=== PATIENT | male | born 1975 | race Caucasian/White ===

== ENCOUNTER 2016-12-10 18:35 | Emergency (ER) | payer MEDICAID ==
[~2016-12-10] VITALS: Ht 165.1 cm; Wt 91.0 kg
[~2016-12-10 18:35] MED LIST: CEPH-443 PO; IBUP-1542 PO; IBUP800T25 PO
[2016-12-10 18:58] VITALS: Ht 165.1 cm; Wt 91.0 kg
[2016-12-10] MEDS ORDERED: KETOROLAC 30 MG INJ IM STA (19:34)
[2016-12-10] MEDS ORDERED: TRAM50TA2 PO (19:39)
[2016-12-10] MEDS ORDERED: NAPR-260 PO (19:39)
[2016-12-10] MEDS ORDERED: CYCL-319 PO (19:39)
--- NOTE | 2016-12-10 19:50 | ERD ---
ER Documentation Chief Complaint Chief Complaint lower back pain since this am, was trying to move a cabinet HPI This is a 41-year-old male who presents the emergency department today complaining of low back pain that started this morning after trying to move a heavy cabinet. Patient states he has pain with twisting. States he feels like it is grabbing and pulling. Denies any fevers or chills, dysuria, hematuria , previous trauma. States he took a diclofenac earlier this morning. Denies any loss of bowel or bladder control. ROS All systems reviewed and are negative except as per history of present illness. Medications Home Meds Active Scripts Tramadol HCl (Tramadol HCl) 50 Mg Tablet, 50 MG PO Q4 Y for PAIN, #20 TAB Prov:GOGO WEN PA-C 12/10/16 Cyclobenzaprine Hcl* (Cyclobenzaprine Hcl*) 10 Mg Tablet, 10 MG PO QHS, #7 TAB Prov:GOGO WEN PA-C 12/10/16 Naproxen* (Naprosyn*) 500 Mg Tablet, 500 MG PO BID Y for PAIN AND/OR INFLAMMATION, #30 TAB Prov:GOGO WEN PA-C 12/10/16 Ibuprofen* (Motrin*) 600 Mg Tab, 600 MG PO Q6, #20 TAB Prov:LB PEGN PA-C 08/24/14 Cephalexin* (Keflex*) 500 Mg Capsule, 500 MG PO QID for 7 Days, CAP Prov:LB PENG PA-C 08/24/14 Ibuprofen* (Motrin*) 800 Mg Tab, 800 MG PO Q6, #30 TAB Prov:BERNIE SERRANO PA-C 08/23/14 Allergies Allergies: Coded Allergies: No Known Allergy (Unverified , 12/10/16) PMhx/Soc History of Surgery: No Anesthesia Reaction: No Hx Neurological Disorder: No Hx Cardiac Disorders: No Hx Psychiatric Problems: No Hx Miscellaneous Medical Probl: No Hx Alcohol Use: No Hx Substance Use: No Hx Tobacco Use: No Smoking Status: Never smoker Physical Exam Vitals Vital Signs Date Time Temp Pulse Resp B/P Pulse Ox O2 Delivery O2 Flow Rate FiO2 12/10/16 18:58 98.1 61 20 160/85 99 Physical Exam Const: NAD Head: Atraumatic Eyes: Normal Conjunctiva ENT: Normal External Ears, Nose and Mouth. Neck: Full range of motion..~ No meningismus. Resp: Clear to auscultation bilaterally Cardio: Regular rate and rhythm, no murmurs Abd: Soft, non tender, non distended. Normal bowel sounds Skin: No petechiae or rashes Back: Lumbar spine with no midline tenderness. Bilateral paraspinal tenderness. Decreased range of motion secondary to pain. Patient able to ambulate. Negative straight leg raise. Pulses 2+. Distal neurovascularly intact. Ext: No cyanosis, or edema Neur: Awake and alert Psych: Normal Mood and Affect Results 24 hrs Current Medications Medications (Trade) Dose Ordered Sig/Anika Route PRN Reason Start Time Stop Time Status Last Admin Dose Admin Ketorolac Tromethamine (Toradol) 30 mg ONCE STAT IM 12/10/16 19:34 12/10/16 19:35 DC Procedures/MDM This is a 1-year-old male who presents to the emergency department today complaining of back pain removing a heavy cabinet earlier today. Patient was inquiring about x-rays however he has no midline tenderness and he does have bilateral paraspinal tenderness and I do not feel that he needs imaging at this time. I have explained this to the patient. Symptoms at that time is consistent with sprain versus strain. Low suspicion for acute fracture or dislocation. Patient is afebrile and otherwise well-appearing. They have no loss of bowel or bladder control. Low suspicion for cauda equina or abscess. Patient was given Toradol here in the emergency department and pain improved. Patient will be given a prescription for Tramadol ,Naprosyn and Flexeril for home. At this time the patient is stable for discharge and outpatient management. Patient should follow up with their PCP in the next 1-2 days. They may return to the emergency department sooner for any persistent or worsening of symptoms. Patient understood and agreed with the plan. Departure Diagnosis: Primary Impression: Injury of back Encounter type: initial encounter Qualified Code: S39.92XA - Injury of back , initial encounter Condition: Fair Patient Instructions: Back Pain (Acute Or Chronic), Back Sprain/Strain [facility] Usted se sher hecho un examen mdico de control que le indica que no est en lillian condicin que requiera tratamiento urgente en el Departamento de Emergencia. Un estudio ms profundo y el tratamiento de avilez condicin pueden esperar sin ningn riesgo hasta que usted sea atendida/o en el consultorio de avilez mdico o lillian cl sal. Es responsabilidad suya arreglar lillian nando para el seguimiento del danyell. MANEJO DE CONDICIONES NO URGENTES EN EL FUTURO 1) Si usted tiene un mdico de atencin primaria: Usted debera llamar a avilez mdico de atencin primaria antes de venir al departamento de emergencia. Despus de las horas de consultorio, avilez doctor o avilez asociado/a est disponible por telfono. El mdico o enfermero de diane en el servicio telefnico puede asesorarle por funmi medio para atender el problema, o danyell contrario se puede programar lillian nando. 2) Si usted no tiene un mdico de atencin primaria: Llame al mdico o clnica de referencia que aparece abajo samantha las horas de consultorio para hacer lillian nando para que le vean. CLINICAS: [facility] [phone] [facility] [phone] 75[address] [facility]. [facility] [phone] 2[address] [facility]. [place] [phone] [facility] [place] [address] [phone] [facility]. [phone] [address] Additional Instructions: Llame al doctor MAANA y kaylah lillian NANDO PARA DENTRO DE 1-2 ZAZUETA.Dgale a la secretaria que nosotros le instruimos hacer esta nando.Avise o llame si avilez condicin se empeora antes de la nando. Regresa aqui si peor o no mejor. Take Tramadol for severe pain otherwise take Naprosyn or Tylenol or Motrin. Take Flexeril for muscle spasms and take only at night and do not drive while taking this medication. Apply Ice and heat intermittently for pain. GOGO WEN PA-C Dec 10, 2016 19:50
--- NOTE | 2016-12-10 19:50 | ERD ---
ER Documentation Chief Complaint Chief Complaint lower back pain since this am, was trying to move a cabinet HPI This is a 41-year-old male who presents the emergency department today complaining of low back pain that started this morning after trying to move a heavy cabinet. Patient states he has pain with twisting. States he feels like it is grabbing and pulling. Denies any fevers or chills, dysuria, hematuria , previous trauma. States he took a diclofenac earlier this morning. Denies any loss of bowel or bladder control. ROS All systems reviewed and are negative except as per history of present illness. Medications Home Meds Active Scripts Tramadol HCl (Tramadol HCl) 50 Mg Tablet, 50 MG PO Q4 Y for PAIN, #20 TAB Prov:GOGO WEN PA-C 12/10/16 Cyclobenzaprine Hcl* (Cyclobenzaprine Hcl*) 10 Mg Tablet, 10 MG PO QHS, #7 TAB Prov:GOGO WEN PA-C 12/10/16 Naproxen* (Naprosyn*) 500 Mg Tablet, 500 MG PO BID Y for PAIN AND/OR INFLAMMATION, #30 TAB Prov:GOGO WEN PA-C 12/10/16 Ibuprofen* (Motrin*) 600 Mg Tab, 600 MG PO Q6, #20 TAB Prov:LB PENG PA-C 08/24/14 Cephalexin* (Keflex*) 500 Mg Capsule, 500 MG PO QID for 7 Days, CAP Prov:LB PENG PA-C 08/24/14 Ibuprofen* (Motrin*) 800 Mg Tab, 800 MG PO Q6, #30 TAB Prov:BERNIE SERRANO PA-C 08/23/14 Allergies Allergies: Coded Allergies: No Known Allergy (Unverified , 12/10/16) PMhx/Soc History of Surgery: No Anesthesia Reaction: No Hx Neurological Disorder: No Hx Cardiac Disorders: No Hx Psychiatric Problems: No Hx Miscellaneous Medical Probl: No Hx Alcohol Use: No Hx Substance Use: No Hx Tobacco Use: No Smoking Status: Never smoker Physical Exam Vitals Vital Signs Date Time Temp Pulse Resp B/P Pulse Ox O2 Delivery O2 Flow Rate FiO2 12/10/16 18:58 98.1 61 20 160/85 99 Physical Exam Const: NAD Head: Atraumatic Eyes: Normal Conjunctiva ENT: Normal External Ears, Nose and Mouth. Neck: Full range of motion..~ No meningismus. Resp: Clear to auscultation bilaterally Cardio: Regular rate and rhythm, no murmurs Abd: Soft, non tender, non distended. Normal bowel sounds Skin: No petechiae or rashes Back: Lumbar spine with no midline tenderness. Bilateral paraspinal tenderness. Decreased range of motion secondary to pain. Patient able to ambulate. Negative straight leg raise. Pulses 2+. Distal neurovascularly intact. Ext: No cyanosis, or edema Neur: Awake and alert Psych: Normal Mood and Affect Results 24 hrs Current Medications Medications (Trade) Dose Ordered Sig/Anika Route PRN Reason Start Time Stop Time Status Last Admin Dose Admin Ketorolac Tromethamine (Toradol) 30 mg ONCE STAT IM 12/10/16 19:34 12/10/16 19:35 DC Procedures/MDM This is a 1-year-old male who presents to the emergency department today complaining of back pain removing a heavy cabinet earlier today. Patient was inquiring about x-rays however he has no midline tenderness and he does have bilateral paraspinal tenderness and I do not feel that he needs imaging at this time. I have explained this to the patient. Symptoms at that time is consistent with sprain versus strain. Low suspicion for acute fracture or dislocation. Patient is afebrile and otherwise well-appearing. They have no loss of bowel or bladder control. Low suspicion for cauda equina or abscess. Patient was given Toradol here in the emergency department and pain improved. Patient will be given a prescription for Tramadol ,Naprosyn and Flexeril for home. At this time the patient is stable for discharge and outpatient management. Patient should follow up with their PCP in the next 1-2 days. They may return to the emergency department sooner for any persistent or worsening of symptoms. Patient understood and agreed with the plan. Departure Diagnosis: Primary Impression: Injury of back Encounter type: initial encounter Qualified Code: S39.92XA - Injury of back , initial encounter Condition: Fair Patient Instructions: Back Pain (Acute Or Chronic), Back Sprain/Strain Referrals: [facility] Usted se sher hecho un examen mdico de control que le indica que no est en lillian condicin que requiera tratamiento urgente en el Departamento de Emergencia. Un estudio ms profundo y el tratamiento de avilez condicin pueden esperar sin ningn riesgo hasta que usted sea atendida/o en el consultorio de avilez mdico o lillian cl sal. Es responsabilidad suya arreglar lillian nando para el seguimiento del danyell. MANEJO DE CONDICIONES NO URGENTES EN EL FUTURO 1) Si usted tiene un mdico de atencin primaria: Usted debera llamar a avilez mdico de atencin primaria antes de venir al departamento de emergencia. Despus de las horas de consultorio, avilez doctor o avilez asociado/a est disponible por telfono. El mdico o enfermero de diane en el servicio telefnico puede asesorarle por funmi medio para atender el problema, o danyell contrario se puede programar lillian nando. 2) Si usted no tiene un mdico de atencin primaria: Llame al mdico o clnica de referencia que aparece abajo samantha las horas de consultorio para hacer lillian nando para que le vean. CLINICAS: [facility] [phone] [address] [facility] [phone] 75[address] [facility]. [facility] [phone] [address] [facility]. [place] [address] [phone] [facility]. [place] [phone] [facility]. [phone] [address] Additional Instructions: Llame al doctor MAANA y kaylah lillian NANDO PARA DENTRO DE 1-2 ZAZUETA.Dgale a la secretaria que nosotros le instruimos hacer esta nando.Avise o llame si avilez condicin se empeora antes de la nando. Regresa aqui si peor o no mejor. Take Tramadol for severe pain otherwise take Naprosyn or Tylenol or Motrin. Take Flexeril for muscle spasms and take only at night and do not drive while taking this medication. Apply Ice and heat intermittently for pain. GOGO WEN PA-C Dec 10, 2016 19:50
--- NOTE | 2016-12-10 19:50 | ERD ---
ER Documentation Chief Complaint Chief Complaint lower back pain since this am, was trying to move a cabinet HPI This is a 41-year-old male who presents the emergency department today complaining of low back pain that started this morning after trying to move a heavy cabinet. Patient states he has pain with twisting. States he feels like it is grabbing and pulling. Denies any fevers or chills, dysuria, hematuria , previous trauma. States he took a diclofenac earlier this morning. Denies any loss of bowel or bladder control. ROS All systems reviewed and are negative except as per history of present illness. Medications Home Meds Active Scripts Tramadol HCl (Tramadol HCl) 50 Mg Tablet, 50 MG PO Q4 Y for PAIN, #20 TAB Prov:GOGO WEN PA-C 12/10/16 Cyclobenzaprine Hcl* (Cyclobenzaprine Hcl*) 10 Mg Tablet, 10 MG PO QHS, #7 TAB Prov:GOGO WEN PA-C 12/10/16 Naproxen* (Naprosyn*) 500 Mg Tablet, 500 MG PO BID Y for PAIN AND/OR INFLAMMATION, #30 TAB Prov:GOGO WEN PA-C 12/10/16 Ibuprofen* (Motrin*) 600 Mg Tab, 600 MG PO Q6, #20 TAB Prov:LB PENG PA-C 08/24/14 Cephalexin* (Keflex*) 500 Mg Capsule, 500 MG PO QID for 7 Days, CAP Prov:LB PENG PA-C 08/24/14 Ibuprofen* (Motrin*) 800 Mg Tab, 800 MG PO Q6, #30 TAB Prov:BERNIE SERRANO PA-C 08/23/14 Allergies Allergies: Coded Allergies: No Known Allergy (Unverified , 12/10/16) PMhx/Soc History of Surgery: No Anesthesia Reaction: No Hx Neurological Disorder: No Hx Cardiac Disorders: No Hx Psychiatric Problems: No Hx Miscellaneous Medical Probl: No Hx Alcohol Use: No Hx Substance Use: No Hx Tobacco Use: No Smoking Status: Never smoker Physical Exam Vitals Vital Signs Date Time Temp Pulse Resp B/P Pulse Ox O2 Delivery O2 Flow Rate FiO2 12/10/16 18:58 98.1 61 20 160/85 99 Physical Exam Const: NAD Head: Atraumatic Eyes: Normal Conjunctiva ENT: Normal External Ears, Nose and Mouth. Neck: Full range of motion..~ No meningismus. Resp: Clear to auscultation bilaterally Cardio: Regular rate and rhythm, no murmurs Abd: Soft, non tender, non distended. Normal bowel sounds Skin: No petechiae or rashes Back: Lumbar spine with no midline tenderness. Bilateral paraspinal tenderness. Decreased range of motion secondary to pain. Patient able to ambulate. Negative straight leg raise. Pulses 2+. Distal neurovascularly intact. Ext: No cyanosis, or edema Neur: Awake and alert Psych: Normal Mood and Affect Results 24 hrs Current Medications Medications (Trade) Dose Ordered Sig/Anika Route PRN Reason Start Time Stop Time Status Last Admin Dose Admin Ketorolac Tromethamine (Toradol) 30 mg ONCE STAT IM 12/10/16 19:34 12/10/16 19:35 DC Procedures/MDM This is a 1-year-old male who presents to the emergency department today complaining of back pain removing a heavy cabinet earlier today. Patient was inquiring about x-rays however he has no midline tenderness and he does have bilateral paraspinal tenderness and I do not feel that he needs imaging at this time. I have explained this to the patient. Symptoms at that time is consistent with sprain versus strain. Low suspicion for acute fracture or dislocation. Patient is afebrile and otherwise well-appearing. They have no loss of bowel or bladder control. Low suspicion for cauda equina or abscess. Patient was given Toradol here in the emergency department and pain improved. Patient will be given a prescription for Tramadol ,Naprosyn and Flexeril for home. At this time the patient is stable for discharge and outpatient management. Patient should follow up with their PCP in the next 1-2 days. They may return to the emergency department sooner for any persistent or worsening of symptoms. Patient understood and agreed with the plan. Departure Diagnosis: Primary Impression: Injury of back Encounter type: initial encounter Qualified Code: S39.92XA - Injury of back , initial encounter Condition: Fair Patient Instructions: Back Pain (Acute Or Chronic), Back Sprain/Strain [facility] Usted se sher hecho un examen mdico de control que le indica que no est en lillian condicin que requiera tratamiento urgente en el Departamento de Emergencia. Un estudio ms profundo y el tratamiento de avilez condicin pueden esperar sin ningn riesgo hasta que usted sea atendida/o en el consultorio de avilez mdico o lillian cl sal. Es responsabilidad suya arreglar lillian nando para el seguimiento del danyell. MANEJO DE CONDICIONES NO URGENTES EN EL FUTURO 1) Si usted tiene un mdico de atencin primaria: Usted debera llamar a avilez mdico de atencin primaria antes de venir al departamento de emergencia. Despus de las horas de consultorio, avilez doctor o avilez asociado/a est disponible por telfono. El mdico o enfermero de diane en el servicio telefnico puede asesorarle por funmi medio para atender el problema, o danyell contrario se puede programar lillian nando. 2) Si usted no tiene un mdico de atencin primaria: Llame al mdico o clnica de referencia que aparece abajo samantha las horas de consultorio para hacer lillian nando para que le vean. CLINICAS: [facility] [phone] [address] [facility] [phone] 7515 [facility]. [facility] [phone] 2[address] [facility]. [place] [phone] [facility]. [place] [phone] [facility]. [phone] [address] Additional Instructions: Llame al doctor MAANA y kaylah lillian NNADO PARA DENTRO DE 1-2 ZAZUETA.Dgale a la secretaria que nosotros le instruimos hacer esta nando.Avise o llame si avilez condicin se empeora antes de la nando. Regresa aqui si peor o no mejor. Take Tramadol for severe pain otherwise take Naprosyn or Tylenol or Motrin. Take Flexeril for muscle spasms and take only at night and do not drive while taking this medication. Apply Ice and heat intermittently for pain. GOGO WEN PA-C Dec 10, 2016 19:50
== END 2016-12-10 20:19 | disposition home or self-care (01) ==
LOC: FTE 18:35
DX: S39.92XA Unspecified injury of lower back, initial encounter (principal); X50.9XXA Other and unspecified overexertion or strenuous movements or postures, initial encounter; Y92.9 Unspecified place or not applicable
CPT/HCPCS: 96372; J1885; Z7502

== ENCOUNTER 2018-08-15 20:22 | Emergency (ER) | payer MEDICAID ==
[~2018-08-15] VITALS: Ht 165.1 cm; Wt 95.6 kg
[~2018-08-15 20:22] MED LIST changes: +CYCL10TA7 PO; -IBUP800T25 PO; +IBUP800T48 PO; +NAPR-985 PO; +TRAM50TA2 PO
[2018-08-15 20:26] VITALS: BP 146/88; PULSE 91; RESP 20; Ht 165.1 cm; Wt 95.6 kg
[2018-08-15] MEDS ORDERED: KETOROLAC 30 MG INJ IM STA (21:19)
[2018-08-15] MEDS ORDERED: BUTA1CAP38 PO (21:21)
[2018-08-15] MEDS ORDERED: IBUP-1542 PO (21:21)
--- NOTE | 2018-08-15 21:26 | ERD ---
ER Documentation Chief Complaint Chief Complaint YOUNG, dizziness, SOB from [id number], no c/o YOUNG and shakey HPI 42-year-old male with no reported past medical or surgical history who presents with complaint of worsening frontal headache and intermittent dizziness. Patient comes with gradual onset since this morning. Describes a history of migraine headaches over the past several years. Had a single episode of nausea and vomiting which has since resolved. Also a single episode of shortness of breath this afternoon. Also reports intermittent dizziness. He otherwise denies that this headache is the worst type headache in his life, worsening vision, fevers, chills, neck pain, chest pain, worsening shortness of breath or dyspnea, dyspnea on exertion, abdominal pain or any other concerning symptoms. He took Excedrin for symptoms which only mildly helped with headache. He otherwise denies alcohol or drug abuse. Patient nontoxic-appearing at time evaluation answering all questions appropriately with normal triage vital signs. ROS All systems reviewed and are negative except as per history of present illness. Medications Home Meds Active Scripts Ibuprofen* (Motrin*) 600 Mg Tab, 600 MG PO Q6H PRN for PAIN AND OR ELEVATED TEMP, #30 TAB Prov:YOVANI YATES PA-C 08/15/18 Mbeujonrzy-Hwuqdviwoupiy-Wgoikezm* (Fioricet*) 50-300-40 Mg Capsule, 1 CAP PO Q4H PRN for HEADACHE for 30 Days, CAP Prov:YOVANI YATES PA-C 08/15/18 Tramadol HCl (Tramadol HCl) 50 Mg Tablet, 50 MG PO Q4 PRN for PAIN, #20 TAB Prov:GOGO WEN PA-C 12/10/16 Cyclobenzaprine Hcl* (Cyclobenzaprine Hcl*) 10 Mg Tablet, 10 MG PO QHS, #7 TAB Prov:GOGO WEN PA-C 12/10/16 Naproxen* (Naprosyn*) 500 Mg Tablet, 500 MG PO BID PRN for PAIN AND/OR INFLAMMATION, #30 TAB Prov:GOGO WEN PA-C 12/10/16 Ibuprofen* (Motrin*) 600 Mg Tab, 600 MG PO Q6, #20 TAB Prov:LB PENG PA-C 08/24/14 Cephalexin* (Keflex*) 500 Mg Capsule, 500 MG PO QID for 7 Days, CAP Prov:LB PENG PA-C 08/24/14 Ibuprofen* (Motrin*) 800 Mg Tab, 800 MG PO Q6, #30 TAB Prov:BERNIE SERRANO PA-C 08/23/14 Allergies Allergies: Coded Allergies: No Known Allergy (Unverified , 12/10/16) PMhx/Soc Medical and Surgical Hx: pt denies Medical Hx, pt denies Surgical Hx History of Surgery: No Anesthesia Reaction: No Hx Neurological Disorder: No Hx Respiratory Disorders: Yes (ASTHMA) Hx Cardiac Disorders: No Hx Psychiatric Problems: No Hx Miscellaneous Medical Probl: No Hx Alcohol Use: No Hx Substance Use: No Hx Tobacco Use: No Smoking Status: Never smoker FmHx Family History: No diabetes, No coronary disease, No other Physical Exam Vitals Vital Signs Date Temp Pulse Resp B/P (MAP) Pulse Ox O2 O2 Flow FiO2 Time Delivery Rate 08/15/18 98.9 91 20 146/88 98 20:26 (107) Physical Exam I have reviewed the triage vital signs. Const: Well nourished, well developed, appears stated age Eyes: PERRL, no conjunctival injection HENT: NCAT, Neck supple without meningismus CV: RRR, Warm, well-perfused extremities RESP: CTAB, Unlabored respiratory effort GI: soft, non-tender, non-distended, no masses MSK: No gross deformities appreciated, neck full range of motion, no sinus tenderness Skin: Warm, dry. No rashes Neuro: grossly non focal Psych: Appropriate mood and affect. Results 24 hrs Current Medications Medications Dose Sig/Anika Start Time Status Last (Trade) Ordered Route PRN Stop Time Admin Dose Reason Admin Ketorolac 30 mg ONCE STAT 08/15/18 DC Tromethamine IM 21:19 (Toradol) 08/15/18 21:20 10 mg ONCE ONCE 08/15/18 Dexamethasone IM 21:30 (Decadron) 08/15/18 21:31 Procedures/MDM This patient presents with a headache most consistent with primary type headache, migraine. Differential diagnosis includes migraine versus tension type headache. No headache red flags. Neurologic exam without evidence of meningismus, focal neurologic findings. Presentation not consistent with acute intracranial bleed to include SAH (lack of risk factors, headache history). Pres entation not consistent with acute [employer] infection to include meningitis or brain abscess, Temporal arteritis unlikely, as is acute angle closure glaucoma given history and physical findings. Presentation not consistent with other acute, emergent causes of headache at this time. Plan to treat symptomatically with pain medication. No indication for imaging/LP at this time. Plan: Toradol and Decadron given in ED, will discharge with Fioricet and ibuprofen, PMD follow-up DISPOSITION PLAN: We discussed follow up with the patient's primary care doctor within 24 to 48 hours. Patient counseled regarding my diagnostic impression and care plan. Prior to discharge all questions answered. Pt agrees with treatment plan and understands strict return precautions. Precautionary instructions provided including instructions to return to the ER if not improving or for any worsening or changing symptoms or concerns. Disclaimer: Inadvertent spelling and grammatical errors are likely due to EHR/dictation software use and do not reflect on the overall quality of patient care. Also, please note that the electronic time recorded on this note does not necessarily reflect the actual time of the patient encounter. Departure Diagnosis: Primary Impression: Headache Condition: Stable Patient Instructions: Self-Care for Headaches, Migraine Headache: Stages and Treatment Referrals: [facility] YOU HAVE RECEIVED A MEDICAL SCREENING EXAM AND THE RESULTS INDICATE THAT YOU DO NOT HAVE A CONDITION THAT REQUIRES URGENT TREATMENT IN THE EMERGENCY DEPARTMENT. FURTHER EVALUATION AND TREATMENT OF YOUR CONDITION CAN WAIT UNTIL YOU ARE SEEN IN YOUR DOCTORS OFFICE WITHIN THE NEXT 1-2 DAYS. IT IS YOUR RESPONSIBILITY TO MAKE AN APPOINTMENT FOR FOLOW-UP CARE. IF YOU HAVE A PRIMARY DOCTOR --you should call your primary doctor and schedule an appointment IF YOU DO NOT HAVE A PRIMARY DOCTOR YOU CAN CALL OUR PHYSICIAN REFERRAL HOTLINE AT IF YOU CAN NOT AFFORD TO SEE A PHYSICIAN YOU CAN CHOSE FROM THE FOLLOWING [facility] [address] [facility] [address] [facility] [address] [facility] [address] [facility] [address] [facility]. [facility]. [address] Additional Instructions: Call your primary care doctor TOMORROW for an appointment during the next 2-3 days.See the doctor sooner or return here if your condition worsens before your appointment time. YOVANI YATES PA-C Aug 15, 2018 21:26
[2018-08-15] MEDS ORDERED: DEXAMETHASONE 10 MG/ML 1 ML INJ IM ONE (21:30)
== END 2018-08-15 21:45 | disposition home or self-care (01) ==
LOC: FTE 20:22
DX: R51 Headache (principal); J45.901 Unspecified asthma with (acute) exacerbation
CPT/HCPCS: 96372; J1100; J1885; Z7502